=== PATIENT | female | born 1980 | race African-American/Black ===

== ENCOUNTER 2019-04-15 17:42 | Observation (INO) | payer OTHER ==
[~2019-04-15] VITALS: Ht 165.1 cm; Wt 85.8 kg
--- NOTE | 2019-04-15 17:49 | PHYS DOC ---
Adult General Chief Complaint Chief Complaint: ".. I got this chest pain... and now headache for past 72 hrs.. it not better.. It seem like my Lt arm is numb or feels funny..." HPI HPI Patient is a 38 year old female who presents with above hx and complaints of chest pain and Lt side/ arm numbness . Patient denies any irregular heart rhythms. Pt. states symptoms been present past 72 hours. Patient denies any injury. Patient denies previous cardiac issues. Patient denies any previous TIAs or CVAs. Patient denies previous history of migraines. Patient denies any travel or specific ill contacts. Patient has not been in contact with other individuals overseas. She has 6 children. Patient does have some photophobia. There is family history in his 60s for cardiac issues. She denies Review of Systems Review of Systems Constitutional: Denies fever or chills [] Eyes: Denies change in visual acuity, redness, or eye pain [] HENT: Denies nasal congestion or sore throat [] Respiratory: Denies cough or shortness of breath [] Cardiovascular: No additional information not addressed in HPI [] GI: Denies abdominal pain, nausea, vomiting, bloody stools or diarrhea [] : Denies dysuria or hematuria [] Musculoskeletal: Denies back pain or joint pain [] Integument: Denies rash or skin lesions [] Neurologic: Denies headache, focal weakness or sensory changes [] Endocrine: Denies polyuria or polydipsia [] All other systems were reviewed and found to be within normal limits, except as documented in this note. Family History Family History Cardiac history in the 60s for mother and father Current Medications Current Medications See nursing for home meds Allergies Allergies No known drug allergies Physical Exam Physical Exam Constitutional: Moderate acute distress, non-toxic appearance. [] HENT: Normocephalic, atraumatic, bilateral external ears normal, oropharynx moist, no oral exudates, nose normal. []Has a stocking cap pulled down over her eyes Eyes: PERRLA, EOMI, conjunctiva normal, no discharge. Does have photophobia. Neck: Normal range of motion, no tenderness, supple, no stridor. [] Cardiovascular:Heart rate regular rhythm, no murmur [] Lungs & Thorax: Bilateral breath sounds equal at apex auscultation [] Abdomen: Bowel sounds normal, soft, no tenderness, no masses, no pulsatile masses. [] Obese Skin: Warm, dry, no erythema, no rash. [] Back: No tenderness, no CVA tenderness. [] Extremities: No tenderness, no cyanosis, no clubbing, ROM intact, no edema. [] No cording appreciated Neurologic: Alert and oriented X 3, normal motor function, normal sensory function, no focal deficits noted. []DTRs +2 patella and brachial. No drift. Ambulatory without problems. Right-hand dominant. Psychologic: Affect anxious, judgement normal, mood normal. [] EKG EKG I interpretation EKG shows a sinus rhythm at 72 bpm. No findings acute STEMI with contralateral changes.[] Radiology/Procedures Radiology/Procedures [][place] [address] IMAGING REPORT Signed PATIENT: STEVEN BROWER AACCOUNT: [id number] : 1980 LOCATION: ER AGE: 38 SEX: F EXAM STATUS: REG ER ORD. PHYSICIAN: SOUMYA VELA MD REASON: worrell, shoulder Lt PROCEDURE: CT HEAD AND CERVICAL SPINE WO Exam: CT head and cervical spine INDICATION: Headache TECHNIQUE: Sequential axial images through the head and cervical spine were obtained without the administration of IV contrast. Comparisons: None FINDINGS: Head: No focal parenchymal lesion or hemorrhage is identified. There is no midline shift or sulcal effacement. No acute vascular territory infarction is identified. Hinojosa-white distinction is preserved. The ventricular system is within normal limits without compression hydrocephalus. The basal cisterns are well maintained. The visualized portions of the paranasal sinuses and mastoid air cells are well-pneumatized. No acute fractures. Cervical spine: There is straightening of cervical spine which may be positional. Vertebral body heights are well-maintained. Fracture to the cervical spine is not identified. No significant spondylotic change in cervical spine. Visualized paraspinal soft tissues are unremarkable. IMPRESSION: 1. No acute intracranial abnormality. 2. Negative CT C-spine for acute traumatic injury. Exposure: One or more of the following in the visualized dose reduction techniques were utilized for this examination: 1. Automated exposure control 2. Adjustment of the MA and/or KV according to patient size Use of iterative of reconstructive technique Electronically signed by: France Holbrook MD (04/15/2019 7:50 PM) [facility] DICTATED AND SIGNED BY: FRANCE HOLBROOK MD DATE: 04/15/191949 CC: BHAKTI DIAZ; SOUMYA VELA MD ~ [place] [address] IMAGING REPORT Signed PATIENT: STEVEN BROWER AACCOUNT: [id number] : 1980 LOCATION: ER AGE: 38 SEX: F EXAM STATUS: REG ER ORD. PHYSICIAN: SOUMYA VELA MD REASON: cp PROCEDURE: CHEST PA & LATERAL CHEST PA LATERAL Clinical indications: Chest pain. COMPARISON: None available. Findings: No acute lung infiltrate or pleural effusion or pulmonary edema or lung mass or pneumothorax is seen. The heart size, pulmonary vasculature, mediastinum and both joann are unremarkable. The osseous structures appear intact. Impression: No acute radiographic abnormality is seen. Electronically signed by: aSmpson Wellington MD (04/15/2019 8:03 PM) [facility] DICTATED AND SIGNED BY: SAMPSON WELLINGTON MD DATE: 04/15/192002 CC: BHAKTI DIAZ; SOUMYA VELA MD ~ Course & Med Decision Making Course & Med Decision Making Pertinent Labs and Imaging studies reviewed. (See chart for details) Discussed with pt. Uncomfortable with repeat Trop in ED as rule out. Will admit for cardiology consult and neuro checks. Age and length of CP - suspect pt. however lower risk. Pt. declined spinal tap at this time. Pt. admitted to Dr. Butler with Cardiology consult. Heart Score 2 to 3. Impression: 1. Chest Pain 2. Headache 3. Lt arm numbness [] Dragon Disclaimer Dragon Disclaimer This electronic medical record was generated, in whole or in part, using a voice recognition dictation system. Departure Departure: Disposition: HOME/RESIDENCE PRIOR TO ADM Condition: STABLE Referrals: BHAKTI DIAZ (PCP) Kyra Disclaimer This chart was dictated in whole or in part using Voice Recognition software in a busy, high-work load, and often noisy Emergency Department environment. It may contain unintended and wholly unrecognized errors or omissions. SOUMYA VELA MD Apr 15, 2019 17:49
--- NOTE | 2019-04-15 17:59 | EKG ---
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
[2019-04-15] MEDS ORDERED: IV RINGERS SOLUTION,LACTATED 1,000 ML IV SCH (18:00)
[2019-04-15 18:27] LABS: BASO # 0.1 x10^3/uL (0.0-0.2); BASO % 1 % (0-3); EOS # 0.1 x10^3/uL (0.0-0.7); EOS % 2 % (0-3); HEMATOCRIT 38.2 % (36.0-47.0); HEMOGLOBIN 12.9 g/dL (12.0-15.5); LYMPH # 2.4 x10^3/uL (1.0-4.8); LYMPH % 41 % (24-48); MEAN CORPUSCULAR HEMOGLOBIN 28 pg (25-35); MEAN CORPUSCULAR HGB CONC 34 g/dL (31-37); MEAN CORPUSCULAR VOLUME 84 fL (79-100); MONO # 0.5 x10^3/uL (0.0-1.1); MONO % 8 % (0-9); NEUT # 2.9 x10^3uL (1.8-7.7); NEUT % 49 % (31-73); PLATELET COUNT 355 x10^3/uL (140-400); RED BLOOD COUNT 4.55 x10^6/uL (3.50-5.40); RED CELL DISTRIBUTION WIDTH 14.6 % (11.5-14.5)
[2019-04-15 18:39] LABS: CALCIUM 8.3 mg/dL (8.5-10.1); CREATININE 0.8 mg/dL (0.6-1.0); GFR 98.2
[2019-04-15 18:51] LABS: ALBUMIN 3.2 g/dL (3.4-5.0); DIRECT BILIRUBIN 0.1 mg/dL (0.0-0.2); TOTAL BILIRUBIN 0.3 mg/dL (0.2-1.0); TOTAL PROTEIN 6.6 g/dL (6.4-8.2)
--- NOTE | 2019-04-15 19:53 | RAD ---
Exam: CT head and cervical spine INDICATION: Headache TECHNIQUE: Sequential axial images through the head and cervical spine were obtained without the administration of IV contrast. Comparisons: None FINDINGS: Head: No focal parenchymal lesion or hemorrhage is identified. There is no midline shift or sulcal effacement. No acute vascular territory infarction is identified. Hinojosa-white distinction is preserved. The ventricular system is within normal limits without compression hydrocephalus. The basal cisterns are well maintained. The visualized portions of the paranasal sinuses and mastoid air cells are well-pneumatized. No acute fractures. Cervical spine: There is straightening of cervical spine which may be positional. Vertebral body heights are well-maintained. Fracture to the cervical spine is not identified. No significant spondylotic change in cervical spine. Visualized paraspinal soft tissues are unremarkable. IMPRESSION: 1. No acute intracranial abnormality. 2. Negative CT C-spine for acute traumatic injury. Exposure: One or more of the following in the visualized dose reduction techniques were utilized for this examination: 1. Automated exposure control 2. Adjustment of the MA and/or KV according to patient size Use of iterative of reconstructive technique Electronically signed by: France Oliver MD (04/15/2019 7:50 PM) [facility]
--- NOTE | 2019-04-15 20:06 | RAD ---
CHEST PA LATERAL Clinical indications: Chest pain. COMPARISON: None available. Findings: No acute lung infiltrate or pleural effusion or pulmonary edema or lung mass or pneumothorax is seen. The heart size, pulmonary vasculature, mediastinum and both joann are unremarkable. The osseous structures appear intact. Impression: No acute radiographic abnormality is seen. Electronically signed by: Ryland Wellington MD (04/15/2019 8:03 PM) [facility]
[2019-04-15] MEDS ORDERED: ONDANSETRON PF 4 MG/2 ML VIAL. IVP ONE (20:15)
[2019-04-15] MEDS ORDERED: KETOROLAC 30 MG/ML VIAL. IVP ONE (20:15)
[2019-04-15] MEDS ORDERED: ONDANSETRON PF 4 MG/2 ML VIAL. IV PRN (20:15)
[2019-04-15] MEDS: ACETAMINOPHEN 325 MG TABLET PO PRN (20:24)
[2019-04-15 20:37] LABS: BARBITURATES NEG (NEG); BENZODIAZEPINES NEG (NEG); CANNABINOIDS NEG (NEG); COCAINE NEG (NEG); METHADONE NEG (NEG); OPIATES NEG (NEG); PHENCYCLIDINE NEG (NEG)
[2019-04-15 20:45] LABS: AMPHETAMINE/METHAMPHETAMINE NEG (NEG)
[2019-04-15 20:49] LABS: BILIRUBIN,URINE NEG (NEG); CLARITY,URINE CLEAR; COLOR,URINE YELLOW; GLUCOSE,URINE NEG (NEG); NITRITE,URINE NEG (NEG); UROBILINOGEN,URINE 0.2 mg/dL (0.2 mg/dL)
[2019-04-15 20:50] LABS: BACTERIA,URINE FEW /HPF (0-FEW); SQUAMOUS EPITHELIAL CELL,UR FEW /LPF; WBC,URINE OCC /HPF (0-4)
--- NOTE | 2019-04-15 22:15 | NUR ---
The patient, STEVEN BROWER, 38 y/o, F admitted by ALAN HAAS MD, arrived via EMS on a gurney. Pt was given written information regarding hospital policies, unit procedures and contact persons. Valuables were checked, pts vitals were taken and pt is on tele. pt had no complains of nausea. pts pain was at a 2 of 10. pt received pain meds in the ED. will continue to monitor.
[2019-04-16 00:16] VITALS: BP 97/62
[2019-04-16] MEDS ORDERED: LISD50CA3 PO (01:26)
[2019-04-16] MEDS: ACETAMINOPHEN 325 MG TABLET PO PRN ×2 (03:43→09:06)
[2019-04-16 05:58] VITALS: BP 123/80
[2019-04-16 07:06] LABS: BASO # 0.1 x10^3/uL (0.0-0.2); BASO % 1 % (0-3); CALCIUM 7.9 mg/dL (8.5-10.1); CREATININE 0.8 mg/dL (0.6-1.0); EOS # 0.2 x10^3/uL (0.0-0.7); EOS % 3 % (0-3); GFR 98.2; HEMOGLOBIN 13.2 g/dL (12.0-15.5); LYMPH # 2.2 x10^3/uL (1.0-4.8); LYMPH % 39 % (24-48); MEAN CORPUSCULAR HEMOGLOBIN 29 pg (25-35); MEAN CORPUSCULAR HGB CONC 34 g/dL (31-37); MEAN CORPUSCULAR VOLUME 85 fL (79-100); MONO # 0.4 x10^3/uL (0.0-1.1); MONO % 7 % (0-9); NEUT # 2.9 x10^3uL (1.8-7.7); NEUT % 50 % (31-73); PLATELET COUNT 358 x10^3/uL (140-400); POTASSIUM 4.1 mmol/L (3.5-5.1); RED BLOOD COUNT 4.57 x10^6/uL (3.50-5.40); RED CELL DISTRIBUTION WIDTH 14.8 % (11.5-14.5); WHITE BLOOD COUNT 5.8 x10^3/uL (4.0-11.0)
--- NOTE | 2019-04-16 07:49 | PDOC2 ---
CARDIAC CONSULT DATE OF CONSULT Date Of Consult DATE: 04/16/19 TIME: 07:46 REASON FOR CONSULT Reason for Consult Chest pain Hypertension REFERRING PHYSICIAN Referring Physician Dr. Ch SOURCE Source: Chart review, Patient HPI History of Present Illness This is a 38 yo female who presented secondary to migraine, right chest pain, and right sided numbness. Patient reports this has been ongoing for the last 4 days. No dizziness, diaphoresis, palpitations, or nausea/vomiting. Feels fatigued. Is sensitive to light. No recent fevers or illness. PAST MEDICAL HISTORY GI: GERD Psych: Other (ADHD) PAST SURGICAL HISTORY Past Surgical History: No pertinent history FAMILY HISTORY Family History: Hypertension, Hypothyroidism SOCIAL HISTORY Smoke: No ALCOHOL: none Drugs: None Lives: with Family CURRENT MEDICATIONS Current Medications Current Medications Lactated Ringer's 1,000 ml @ 1,000 mls/hr Q1H IV Last administered on 04/15/19at 18:00; Start 04/15/19 at 18:00; Stop 04/15/19 at 18:59; Status DC Ondansetron HCl (Zofran) 8 mg 1X ONCE IVP Last administered on 04/15/19at 20:15; Start 04/15/19 at 20:15; Stop 04/15/19 at 20:16; Status DC Ketorolac Tromethamine (Toradol 30mg Vial) 30 mg 1X ONCE IVP Last administered on 04/15/19at 20:15; Start 04/15/19 at 20:15; Stop 04/15/19 at 20:16; Status DC Ondansetron HCl (Zofran) 4 mg PRN Q4HRS PRN IV NAUSEA/VOMITING; Start 04/15/19 at 20:15; Stop 04/16/19 at 20:14 Acetaminophen (Tylenol) 650 mg PRN Q4HRS PRN PO FEVER Last administered on 04/16/19at 03:43; Start 04/15/19 at 20:15; Stop 04/16/19 at 20:14 Active Scripts Active Reported Vyvanse (Lisdexamfetamine Dimesylate) 50 Mg Capsule 1 Cap PO DAILY MDD 1 Capsule(s) 5 Days ALLERGIES Allergies: Coded Allergies: No Known Drug Allergies (Unverified , 04/15/19) ROS Review of Systems 14 point ROS conducted with pertinent positives noted above in HPI PHYSICAL EXAM General: Alert, Oriented X3, Cooperative, No acute distress HEENT: Atraumatic, Mucous membr. moist/pink Lungs: Clear to auscultation Heart: Regular rate, Normal S1, Normal S2, No murmurs Abdomen: Soft, No tenderness Extremities: No edema, Normal pulses Skin: No breakdown Neuro: Normal speech, Sensation intact Psych/Mental Status: Mental status NL, Mood NL MUSCULOSKELETAL: No joint tenderness VITALS Vital Signs Vital Signs Date Time Temp Pulse Resp B/P (MAP) Pulse Ox O2 Delivery O2 Flow Rate FiO2 04/16/19 05:58 98.2 71 16 123/80 (94) 96 Room Air LABS LABS Laboratory Tests Test 04/15/19 17:45 04/15/19 18:11 04/15/19 20:18 04/15/19 20:27 Erythrocyte Sedimentation Rate 8 (0-25) White Blood Count 6.0 x10^3/uL (4.0-11.0) Red Blood Count 4.55 x10^6/uL (3.50-5.40) Hemoglobin 12.9 g/dL (12.0-15.5) Hematocrit 38.2 % (36.0-47.0) Mean Corpuscular Volume 84 fL (79-100) Mean Corpuscular Hemoglobin 28 pg (25-35) Mean Corpuscular Hemoglobin Concent 34 g/dL (31-37) Red Cell Distribution Width 14.6 % (11.5-14.5) Platelet Count 355 x10^3/uL (140-400) Neutrophils (%) (Auto) 49 % (31-73) Lymphocytes (%) (Auto) 41 % (24-48) Monocytes (%) (Auto) 8 % (0-9) Eosinophils (%) (Auto) 2 % (0-3) Basophils (%) (Auto) 1 % (0-3) Neutrophils # (Auto) 2.9 x10^3uL (1.8-7.7) Lymphocytes # (Auto) 2.4 x10^3/uL (1.0-4.8) Monocytes # (Auto) 0.5 x10^3/uL (0.0-1.1) Eosinophils # (Auto) 0.1 x10^3/uL (0.0-0.7) Basophils # (Auto) 0.1 x10^3/uL (0.0-0.2) Prothrombin Time 9.9 SEC (9.4-11.4) Prothromb Time International Ratio 1.0 (0.9-1.1) Activated Partial Thromboplast Time 24 SEC (23-33) D-Dimer (Valent[place]) 0.42 mg/L (0.00-0.50) Sodium Level 142 mmol/L (136-145) Potassium Level 4.0 mmol/L (3.5-5.1) Chloride Level 105 mmol/L (98-107) Carbon Dioxide Level 29 mmol/L (21-32) Anion Gap 8 (6-14) Blood Urea Nitrogen 13 mg/dL (7-20) Creatinine 0.8 mg/dL (0.6-1.0) Estimated GFR (Cockcroft-Gault) 98.2 Glucose Level 91 mg/dL (70-99) Calcium Level 8.3 mg/dL (8.5-10.1) Magnesium Level 2.0 mg/dL (1.8-2.4) Total Bilirubin 0.3 mg/dL (0.2-1.0) Direct Bilirubin 0.1 mg/dL (0.0-0.2) Aspartate Amino Transf (AST/SGOT) 15 U/L (15-37) Alanine Aminotransferase (ALT/SGPT) 28 U/L (14-59) Alkaline Phosphatase 62 U/L (46-116) Creatine Kinase 70 U/L (26-192) Troponin I Quantitative < 0.017 ng/mL (0-0.055) DV-Qtn-R-Type Natriuretic Peptide 52 pg/mL (0-124) Total Protein 6.6 g/dL (6.4-8.2) Albumin 3.2 g/dL (3.4-5.0) Lipase 160 U/L (73-393) Urine Collection Type Unknown Urine Color Yellow Urine Clarity Clear Urine pH 7.0 Urine Specific [place] 1.025 Urine Protein Neg (NEG-TRACE) Urine Glucose (UA) Neg mg/dL (NEG) Urine Ketones (Stick) Neg mg/dL (NEG) Urine Blood Large (NEG) Urine Nitrite Neg (NEG) Urine Bilirubin Neg (NEG) Urine Urobilinogen Dipstick 0.2 mg/dL (0.2 mg/dL) Urine Leukocyte Esterase Neg (NEG) Urine RBC 3-5 /HPF (0-2) Urine WBC Occ /HPF (0-4) Urine Squamous Epithelial Cells Few /LPF Urine Bacteria Few /HPF (0-FEW) Urine Opiates Screen Neg (NEG) Urine Methadone Screen Neg (NEG) Urine Barbiturates Neg (NEG) Urine Phencyclidine Screen Neg (NEG) Urine Amphetamine/Methamphetamine Neg (NEG) Urine Benzodiazepines Screen Neg (NEG) Urine Cocaine Screen Neg (NEG) Urine Cannabinoids Screen Neg (NEG) Urine Ethyl Alcohol Neg (NEG) Bedside Urine HCG, Qualitative hcg negative (Negative) Test 04/16/19 06:38 White Blood Count 5.8 x10^3/uL (4.0-11.0) Red Blood Count 4.57 x10^6/uL (3.50-5.40) Hemoglobin 13.2 g/dL (12.0-15.5) Hematocrit 39.0 % (36.0-47.0) Mean Corpuscular Volume 85 fL (79-100) Mean Corpuscular Hemoglobin 29 pg (25-35) Mean Corpuscular Hemoglobin Concent 34 g/dL (31-37) Red Cell Distribution Width 14.8 % (11.5-14.5) Platelet Count 358 x10^3/uL (140-400) Neutrophils (%) (Auto) 50 % (31-73) Lymphocytes (%) (Auto) 39 % (24-48) Monocytes (%) (Auto) 7 % (0-9) Eosinophils (%) (Auto) 3 % (0-3) Basophils (%) (Auto) 1 % (0-3) Neutrophils # (Auto) 2.9 x10^3uL (1.8-7.7) Lymphocytes # (Auto) 2.2 x10^3/uL (1.0-4.8) Monocytes # (Auto) 0.4 x10^3/uL (0.0-1.1) Eosinophils # (Auto) 0.2 x10^3/uL (0.0-0.7) Basophils # (Auto) 0.1 x10^3/uL (0.0-0.2) Sodium Level 141 mmol/L (136-145) Potassium Level 4.1 mmol/L (3.5-5.1) Chloride Level 106 mmol/L (98-107) Carbon Dioxide Level 26 mmol/L (21-32) Anion Gap 9 (6-14) Blood Urea Nitrogen 10 mg/dL (7-20) Creatinine 0.8 mg/dL (0.6-1.0) Estimated GFR (Cockcroft-Gault) 98.2 Glucose Level 86 mg/dL (70-99) Calcium Level 7.9 mg/dL (8.5-10.1) ASSESSMENT/PLAN Assessment/Plan 1. Migraine x 4 days; CT head without acute findings. Further as per PCP 2. Right sided chest pain with right sided numbness. Non-cardiac. Initial trop negative. EKG without acute findings 3. Tachyarrhythmia; tele not with brief burst of ST. Most probably reactive. 4. GERD; PPI Recommendations TSH level Will monitor rhythm and consider outpatient event monitor DAMIR WASHINGTON APRN Apr 16, 2019 07:49
--- NOTE | 2019-04-16 09:59 | NUR ---
NURSING NOTE PT WAS IN BED THIS AM UPON ASSESSMENT. PT C/O RIGHT ARM NUMBNESS. CARDIOLOGY ASSESSED PT, PT CLEARED FROM THEIR POINT OF VIEW. PT C/O HEADACHE. TYLENOL GIVEN. PT VOICED THAT THE ETHNIC STUDIES PROFESSOR PERFUME WAS TOO STRONG. THIS NURSE DID NOT NOTICE IT. PT STATES SHE IS READY TO GO HOME. INFORMED PT THAT DR HAAS WILL NEED TO SEE HER BEFORE SHE WILL BE DISCHARGED. PT STATES THE ETHNIC STUDIES PROFESSOR TOLD HER SHE WAS OKAY AND SHE WANTS TO GO NOW. INFORMED PT THAT DR HAAS IS THE HOSPITALIST WHO WILL HAVE TO DISCHARGE HER. EDUCATED PT ON IMPORTANCE OF WAITING FOR THE PHYSICIAN TO ASSESS HER BUT GAVE HER THE AMA OPTION. PT STATES SHE WILL WAIT FOR HER TO COME AND THEN SHE WILL DECIDE IF SHE WANTS TO LEAVE OR STAY. CASSANDRA CURTIS.
[2019-04-16 10:52] VITALS: BP 103/71
[2019-04-16 13:55] LABS: THYROID STIM HORMONE (TSH) 0.523 uIU/mL (0.358-3.740)
--- NOTE | 2019-04-16 14:28 | NUR ---
NURSING NOTE WENT INTO PT ROOM WITH DR HAAS, PT BEGAN TO GET HOSTILE WITH DR HAAS DURING HIS ASSESSMENT STATING THAT SHE HAS BEEN HERE SINCE YESTERDAY AND HAS TOLD 3 DIFFERENT PEOPLE HER HEALTH HISTORY AND STATES "WHY HAVEN'T YOU EVEN LOOKED AT MY STUFF YET". THIS NURSE INFORMED PT THAT THIS IS THE ROUTINE WITH EVERY PATIENT TO REVIEW HEAD TO TOE AND MEDICAL HISTORY WITH THE PHYSICIAN. PT TOLD THIS NURSE TO STOP TALKING AND SHE BEGAN TO TELL THE DOCTOR THAT SHE WAS LAYING HERE ALL MORNING WITH A MIGRAINE AND ALL THAT WAS GIVEN WAS TYLENOL AND THAT SHE CAME IN TO GET HELP AND NO ONE IS HELPING HER. THIS NURSE EXCUSED HERSELF FROM THIS PATIENTS CARE. REPORT GIVEN TO CASSIE TRUJILLO. CASSANDRA CURTIS.
[2019-04-16] MEDS ORDERED: KETOROLAC 30 MG/ML VIAL. IVP PRN (14:45)
[2019-04-16] MEDS ORDERED: KETOROLAC 30 MG/ML VIAL. IM ONE (14:45)
--- NOTE | 2019-04-16 15:24 | NUR ---
NSG NOTE; LEFT AMA I ASSUMED CARE OF THE PATIENT AT 1435 AND RECEIVED REPORT FROM KIRSTEN TRUJILLO THE MACHINE II TRIMMER CAME AND GOT ME AT 1445 STATING THE PATIENT HAD REMOVED HER IV AND WAS GOING HOME DR HAAS HAD ORDERED ADDITIONAL PAIN MEDS AND A NEUROLOGY CONSULT BUT THE PATIENT WAS UNWILLING TO WAIT FOR DR MUSA, NEUROLOGY. I TRIED TO ENCOURAGE THE PATIENT TO STAY BUT SHE REFUSED AND SIGNED AMA PAPERWORK. SHE WAS ADVISED TO FOLLOW UP WITH HER PRIMARY DOCTOR AND A NEUROLOGIST PT LEFT AT APPROX 1515 VIA AMB
--- NOTE | 2019-04-16 15:44 | HP ---
ADMIT DATE: 04/15/2019 HISTORY OF PRESENT ILLNESS: The patient is a 38-year-old female patient who came to the Emergency Room complaining of chest pain and now headache that has been going on for the last 72 hours. She claimed that she has left arm that is numb or feels funny; however, when I saw her this afternoon, she stated that her right arm feels weak and numb. The patient denied any irregular heart rate. She states symptoms have been present for more than 4 days now. Denied any injury or fall. She has never had any previous cardiac issues. Denied any previous TIA or CVAs, never had any previous history of migraine headache. The patient has not been in contact with other individuals overseas. She has 6 children. The patient does have some photophobia. She was extensively investigated in the Emergency Room. She has had lab work, which basically showed that her white cell count was normal. Her sedimentation rate was 8 mm per hour. She had actually 3 sets of cardiac enzymes that were all negative. Her prothrombin time, INR, aPTT and D-dimer were within normal limit. Urinalysis was unremarkable and toxic screen was negative. She has had extensive imaging of her head and cervical spine which basically showed no acute intracranial abnormality, negative CT scan of the spine for acute traumatic injury. PAST MEDICAL HISTORY: Significant for gastroesophageal reflux disease and gestational diabetes. PAST SURGICAL HISTORY: Significant for hemorrhoidectomy. ALLERGIES: She has no known drug allergies. MEDICATIONS: She is currently on Vyvanse 50 mg capsule once a day. FAMILY HISTORY: She has no brothers and sisters. Her father is still alive at the age in his 60s. Mother is alive and has hypertension, hypothyroidism. SOCIAL HISTORY: She is , has 6 children. She does not smoke, drink alcohol or use any recreational drugs. 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 REVIEW OF SYSTEMS: As per history of present illness. PHYSICAL EXAMINATION: VITAL SIGNS: On arrival to the Emergency Room, her heart rate was 71, blood pressure 115/65, temperature of 98, respiratory rate was 16, and oxygen saturation was 100% on room air. HEAD, EYES, EARS, NOSE AND THROAT: Showed normocephalic, atraumatic. NECK: Supple. HEART: Showed normal first and second heart sounds. No gallop or murmur. CHEST: Clear to auscultation. No crepitation or rhonchi. ABDOMEN: Distended, soft, nontender. No guarding or rigidity. No organomegaly. All hernial orifices intact. Bowel sounds normal. NEUROLOGIC: She was alert, oriented x 3 with normal motor and sensory function, no focal deficit. Deep tendon reflexes 2+ patellar and brachial. No drift. Ambulates without any problem and she seemed to be right-hand dominant. LABORATORY DATA: On arrival to the Emergency Room, she has had lab work done, which showed a white cell count of 6000, hemoglobin 12.9, hematocrit 38, MCV 84 and platelet count 255,000 with normal manual differential. Her sedimentation rate was 8 mm per hour. Her prothrombin time 9.9, INR 1, aPTT was 24 and D-dimer was 0.42. Her chemistry showed a serum sodium 142, potassium 4, chloride 105, bicarbonate 29, anion gap of 8, BUN 13, creatinine 0.8, estimated GFR was 98 mL per minute. Her glucose was 91, calcium was 8.3, magnesium was 2. Total bilirubin, AST, ALT, alkaline phosphatase were normal. CK was 7. Her first set of cardiac enzyme showed it was less than 0.017. Her beta-natriuretic peptide was 52 and total protein 6.6, albumin was 3.2 and serum lipase was 160. Urinalysis was essentially unremarkable and it was yellow, clear with a pH of 7, specific gravity of 1.025. The urine was negative for protein, glucose, ketones. There was large amount of blood, negative for nitrite or leukocyte esterase. There are 3-5 rbc's, occasional wbc's, and very few bacteria. Her urine test was negative. Toxic screen was negative for opiates, methadone, barbiturates, phencyclidine, amphetamine, methamphetamine, benzodiazepine, cocaine, cannabinoids and alcohol. IMAGING: Her chest x-ray showed no acute lung infiltrate or pleural effusion. No pulmonary edema or lung masses or pneumothorax seen. The heart size, pulmonary vasculature, mediastinum and both joann are unremarkable. The osseous structures appear intact. The CT scan of the head showed no focal parenchymal lesion or hemorrhage identified. There is no midline shift or sulcal effacement, no acute vascular territory infarction identified. Macias-white distinction is preserved. The ventricular system is within normal limits without compression, hydrocephalus. The basal cisterns are well maintained. The visualized portion of the paranasal sinuses and mastoid air cells are well pneumatized. No acute fracture. The CT scan of the cervical spine showed there is straightening of the cervical spine which may be postural, vertebral body heights are well maintained. Fracture to the cervical spine is not identified. No significant spondylitic changes in cervical spine. Visualized paranasal sinuses and soft tissues are unremarkable. ASSESSMENT AND PLAN: The patient was admitted to do 2 more sets of cardiac enzymes, check her fasting lipid profile and will consult Dr. Crews. She seemed to have migraine headache. ALAN HAAS MD DR: DION/cata JOB#: [id number] / [id number]
--- NOTE | 2019-04-16 20:49 | PN ---
DATE: 04/16/2019 SUBJECTIVE: The patient is a 38-year-old female patient who presented with right sided chest pain. While in the Emergency Room, she claims her left arm is feeling funny. When I saw her this afternoon, she stated that all her right side is numb and weak. She was extensively investigated in the Emergency Room and she has 2 sets of cardiac enzymes that were negative and ruled out acute myocardial infarction. Her serum triglycerides were 116, total cholesterol was 197, LDL cholesterol was 123, VLDL was 23 and HDL cholesterol was 51, the ratio was 3. Her TSH was normal at 0.523. Her sedimentation rate was only 8 mmHg. Her coagulation tests are all normal. Her urinalysis and urine tox screen were all negative. Her CT scan of the head and cervical spine were unremarkable. When I saw her this afternoon, she was still complaining of severe headache, pain and weakness on the right side, although in the Emergency Room, she complained of her left upper extremity is funny. She said that even movement of her eyes caused pain and headache. PHYSICAL EXAMINATION: GENERAL: When I saw her this afternoon, she looked well and was clearly in no apparent respiratory distress. She was somewhat pale, but no jaundice, cyanosis or thyromegaly. No jugular venous distention. No lower limb edema. VITAL SIGNS: Her heart rate was 69, blood pressure was 103/71, temperature was 98.3, respiratory rate 20, and oxygen saturation was 99% on room air. ASSESSMENT AND PLAN: The rest of clinical exam is stable, has not really changed; in particular she has no neck rigidity and she was able to flex and extend her neck without any difficulty. She managed to turn her neck, right and left without any difficulty. I ordered Toradol 30 mg IV once and we will consult Dr. Crews to evaluate her as she probably has some migraine headache. ALAN HAAS MD DR: DION/cata JOB#: [id number] / [id number]
[2019-04-17] MEDS ORDERED: NON FORMULARY ITEM (Lisdexamfetamine Dimesylate (Vyvanse) 1 CAP) PO SCH (09:00)
== END 2019-04-16 15:15 | disposition left against medical advice (07) ==
LOC: ER 17:42 → INTOOBSV 20:00 → 1 SOUTH 20:00
PROVIDERS: ADMIT Internal Medicine; ATTEND Internal Medicine
DX: R07.89 Other chest pain (principal); R51 Headache; R20.2 Paresthesia of skin; K21.9 Gastro-esophageal reflux disease without esophagitis
CPT/HCPCS: 36415; 70450; 71046; 72125; 80048; 80061; 80076; 80307; 81001; 81025; 82550; 83690; 83735; 83880; 84443; 84484; 85025; 85379; 85610; 85651; 85730; 93005; 96374; 96375; 99284; G0378; J1885; J2405; J7120; 96361; G0379; 99285-25